=== PATIENT | female | born 1975 | race Caucasian/White ===

== ENCOUNTER 2021-01-06 13:35 | Emergency (ER) | payer OTHER ==
[~2021-01-06] VITALS: Ht 160 cm; Wt 82.5 kg
[~2021-01-06 13:35] MED LIST: AC500T; AZTH250C PO; Clindamycin; HYDR1TAB PO; IBP600T1 PO; IBUP-15 PO; MUCOUS RELIEF; OXYC-12 PO; OXYC1TAB87 PO; PREN1TAB39
[2021-01-06 13:49] VITALS: BP 125/85
[2021-01-06] MEDS ORDERED: TETANUS,DIPTH,PERTUSS P/F (BOOSTRIX) 0.5 ML VIAL IM ONE (14:00)
[2021-01-06] MEDS ORDERED: CEPHALEXIN 250 MG (KEFLEX) CAP PO SCH (14:00)
--- NOTE | 2021-01-06 14:01 | ED Upper Extremity ---
General Chief Complaint: Laceration Stated Complaint: L ARM ELBOW LAC Source: patient Exam Limitations: no limitations (DOROTHEA MORALES APRN) History of Present Illness Date Seen by Provider: Jan 06, 2021 Time Seen by Provider: 13:55 Initial Comments To ER with a right elbow laceration. 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 Onset: just prior to arrival Severity: moderate Pain/Injury Location: right elbow Method of Injury: unknown Modifying Factors: Worse With Movement (DOROTHEA MORALES APRN) Allergies and Home Medications Allergies Coded Allergies: Penicillins (Verified Allergy, Mild, 12/30/08) Home Medications Cephalexin 500 Mg Tablet, 500 MG PO TID Prescribed by: DOROTHEA MORALES on 01/06/21 1414 Ibuprofen 600 Mg Tab, 600 MG PO Q6H, (Reported) Oxycodone HCl/Acetaminophen 1 Each Tablet, 1 EACH PO Q4H PRN for PAIN Prescribed by: RY MARTINEZ on 01/19/16 0818 Patient Home Medication List Home Medication List Reviewed: Yes (DOROTHEA MORALES APRN) Review of Systems Constitutional: see HPI EENTM: see HPI Respiratory: no symptoms reported Cardiovascular: no symptoms reported Genitourinary: no symptoms reported Musculoskeletal: no symptoms reported Skin: see HPI Psychiatric/Neurological: No Symptoms Reported (DOROTHEA MORALES APRN) Past Suchnpf-Uldtpj-Ivqtmg Hx Patient Social History Tobacco Use?: Yes Tobacco type used: Cigarettes Smoking Status: Current Everyday Smoker Use of E-Cig and/or Vaping dev: No Substance use?: No Alcohol Use?: No Pt feels they are or have been: No (DOROTHEA MORALES APRN) Past Medical History Section Reproductive Disorders: No (DOROTHEA MORALES APRN) Physical Exam Vital Signs Vital Signs - First Documented 01/06/21 13:49 Pulse 70 Resp 20 B/P (MAP) 125/85 (98) Pulse Ox 97 O2 Delivery Room Air (RY AGUILAR MD) Vital Signs Capillary Refill : (DOROTHEA MORALES APRN) Height, Weight, BMI Height: 5'2" Weight: 170lbs. oz. 77.664102sd; BMI Method:Stated General Appearance: WD/WN, no apparent distress Neck: non-tender, full range of motion Respiratory: no respiratory distress, no accessory muscle use Gastrointestinal: normal bowel sounds, non tender Shoulder: normal inspection, non-tender Elbow/Forearm: normal inspection, non-tender Wrist: Yes normal inspection, Yes non-tender Hand: normal inspection, non-tender (DOROTHEA MORALES APRN) Departure Communication (Admissions) Family Conversation 1400-this was anesthetized with 2 mL of 2% lidocaine with epinephrine. Irrigated thoroughly with chlorhexidine/saline and then loosely closed with 2 simple erupted sutures size 4-0 Prolene. There is a laceration/puncture to the radial side antecubital space right arm. There is some exposed subcutaneous tissue. No active bleeding. (DOROTHEA MORALES APRN) Impression Primary Impression: Arm laceration Disposition: 01 HOME, SELF-CARE Condition: Stable Departure-Patient Inst. Decision time for Depature: 13:58 (DOROTHEA MORALES APRN) Referrals: NO,LOCAL PHYSICIAN (PCP/Family) Primary Care Physician Patient Instructions: Laceration Repair With Stitches ED Add. Discharge Instructions: You can shower letting water run over this starting this evening but do not soak it in water such as a hot tub bathtub or swimming pool until the stitches have been removed. Take the antibiotics as directed. Return to ER to have the stitches removed in about 7 to 10 days. All discharge instructions reviewed with patient and/or family. Voiced understanding. Scripts Cephalexin (Cephalexin) 500 Mg Tablet 500 MG PO TID, #15 TAB Prov: DOROTHEA MORALES APRN 01/06/21 ATTENDING PHYSICIAN NOTE: I was physically present as attending physician in the emergency department during the care of this patient, but I was not directly involved in the decision making or delivery of care for this patient. (RY AGUILAR MD) DOROTHEA MORALES APRN Jan 06, 2021 14:00 RY AGUILAR MD Jan 08, 2021 20:07
[2021-01-06] MEDS ORDERED: CEPH500T PO (14:14)
== END 2021-01-06 14:29 | disposition home or self-care (01) ==
LOC: EDUNIT# 13:35 → ER 13:37
DX: S41.112A Laceration without foreign body of left upper arm, initial encounter (principal); S51.012A Laceration without foreign body of left elbow, initial encounter; F17.210 Nicotine dependence, cigarettes, uncomplicated; Z23 Encounter for immunization; W22.8XXA Striking against or struck by other objects, initial encounter
CPT/HCPCS: 12001; 90471; 90715

== ENCOUNTER 2021-01-13 08:08 | Emergency (ER) | payer OTHER ==
[~2021-01-13] VITALS: Ht 160 cm; Wt 72.0 kg
[~2021-01-13 08:08] MED LIST changes: +CEPH500T PO
== END 2021-01-13 08:23 | disposition home or self-care (01) ==
LOC: EDUNIT# 08:08 → ER 08:09
DX: Z48.02 Encounter for removal of sutures (principal)

== ENCOUNTER 2022-04-02 19:34 | Emergency (ER) | payer SELFPAY ==
[2022-04-02] MEDS ORDERED: RX-NAPROXEN (NAPROSYN) 250 MG TAB PPK#4 PO STA (19:58)
[2022-04-02] MEDS ORDERED: RX-CYCLOBENZAPRINE 10 MG (FLEXERIL) TAB PPK#3 PO STA (19:58)
[2022-04-02] MEDS ORDERED: CYCL10TA25 PO (20:01)
[2022-04-02] MEDS ORDERED: NAPR500T8 PO (20:01)
--- NOTE | 2022-04-02 20:01 | ED Neck-Back Pain/Injury ---
General Chief Complaint: Head/Cervical Problems Stated Complaint: NECK PAIN Nursing Triage Note: PT ARRIVAL TO ER VIA PRIVATE VEHICLE FROM HOME WITH COMPLAINT OF NECK PAIN SINCE THIS AM. PATIENT WOKE UP WITH NECK PAIN AND STATES THAT IT FELT IF SHE SLEPT ON IT WRONG. WORSENED THROUGHOUT DAY. DENIES RECENT TRAUMA. PATIENT RATES PAIN AT A 4/10. PAIN IS TO LEFT SIDE OF NECK. PATIENT DENIES TAKING ANYTHING FOR THE PAIN AT HOME. Source of Information: Patient History of Present Illness Date Seen by Provider: Apr 02, 2022 Time Seen by Provider: 19:50 Initial Comments PT ARRIVES VIA POV FROM HOME SHE STATES SHE SLEPT WRONG, AND WOKE UP WITH LEFT SIDED NECK PAIN THIS MORNING--POINTS TO LEFT TRAPEZIUS AREA SITE OF PAIN AND PT IS RUBBING THIS AREA PAIN IS WORSE WITH ANY MOVEMENT NO RADIATION OF PAIN NO PARESTHESIAS OR MOTOR DEFICITS. NO INJURY OR UNUSUAL ACTIVITY. NO FEVER OR RECENT ILLNESS NO HEADACHE NO DIZZINESS NO HISTORY OF SIMILAR PT HAS NOT TAKEN ANYTHING FOR PAIN DENIES ANY MEDICAL PROBLEMS OF ANY KIND, AND DOES NOT TAKE ANY MEDICATIONS LMP--3-4 MONTHS AGO. NO CONTROL. PT STATES SHE HAS NOT HAD INTERCOURSE AT ANY TIME SINCE HER LAST PERIOD AND THERE IS NO POSSIBILITY OF . Other Comments PCP: [facility] Allergies and Home Medications Allergies Coded Allergies: Penicillins (Verified Allergy, Mild, 12/30/08) Patient Home Medication List Home Medication List Reviewed: Yes Cephalexin (Cephalexin) 500 Mg Tablet, 500 MG PO TID Prescribed by: DOROTHEA MORALES on 01/06/21 1414 Cyclobenzaprine HCl (Cyclobenzaprine HCl) 10 Mg Tablet, 10 MG PO Q8H PRN for SPASMS Prescribed by: CARLINE MULLER on 04/02/222000 Ibuprofen (Motrin) 600 Mg Tab, 600 MG PO Q6H, (Reported) Entered as Reported by: CARMENCITA BAKER on 03/28/12 1613 Naproxen (Naproxen) 500 Mg Tablet.dr, 500 MG PO BID Prescribed by: CARLINE MULLER on 04/02/222000 Oxycodone HCl/Acetaminophen (Percocet 5-325 mg Tablet) 1 Each Tablet, 1 EACH PO Q4H PRN for PAIN Prescribed by: RY MARTINEZ on 01/19/16 0818 Review of Systems Constitutional: no symptoms reported EENTM: no symptoms reported Respiratory: no symptoms reported Cardiovascular: no symptoms reported Gastrointestinal: no symptoms reported Genitourinary: no symptoms reported Control/STD Prophylaxis: None Skin: no symptoms reported Psychiatric/Neurological: No Symptoms Reported Past Atelgmp-Lbwwhj-Gvnyta Hx Patient Social History Tobacco Use?: Yes Tobacco type used: Cigarettes Smoking Status: Current Everyday Smoker Use of E-Cig and/or Vaping dev: No Substance use?: No Alcohol Use?: No Pt feels they are or have been: No Immunizations Up To Date Influenza Vaccine Up-to-Date: No; Not Current Past Medical History Surgeries: Yes Section Respiratory: No Cardiac: No Neurological: No : No Reproductive Disorders: No Genitourinary: No Gastrointestinal: No Musculoskeletal: No Endocrine: No HEENT: No Cancer: No Psychosocial: No Integumentary: No Blood Disorders: No Physical Exam Vital Signs Vital Signs - First Documented 04/02/22 19:39 Temp 36.5 Pulse 85 Resp 18 B/P (MAP) 131/88 (102) Pulse Ox 97 O2 Delivery Room Air Capillary Refill : Less Than 3 Seconds Height, Weight, BMI Height: 5'2" Weight: 170lbs. oz. 77.989955mr; 32.00 BMI Method:Estimated General Appearance: No Apparent Distress, WD/WN, Other (RUBBING LEFT TRAPEZIUS MUSCLE; REEKS OF CIGARETTES) HEENT: PERRL/EOMI, TMs Normal, Normal ENT Inspection, Pharynx Normal, Moist Mucous Membranes Neck: Full Range of Motion, Supple, Tender Lateral (TENDERNESS DIRECTLY OVER LEFT TRAPEZIUS MUSCLE. PALPATION REPRODUCES PAIN ), Other (NO VERTEBRAL OR BONY TENDERNESS) Cardiovascular: Regular Rate, Rhythm, No Edema, No JVD, No Murmur, Normal Peripheral Pulses Respiratory: Chest Non Tender, Normal Breath Sounds, No Accessory Muscle Use, No Respiratory Distress Gastrointestinal: Non Tender, Soft Back: No CVA Tenderness, No Vertebral Tenderness Extremity: Normal Capillary Refill, Normal Inspection, Normal Range of Motion, Non Tender, No Calf Tenderness, No Pedal Edema Neurologic/Psychiatric: Alert, Oriented x3, No Motor/Sensory Deficits, Normal Mood/Affect, prover II-XII Norm as Tested Skin: Normal Color, Warm/Dry; No Rash Progress/Results/Core Measures Results/Orders My Orders Orders - CARLINE MULLER DO Rx-Cyclobenzaprine Tablet (Rx-Flexeril T (04/02/22 19:58) Rx-Naproxen (Rx-Naprosyn) (04/02/22 19:58) Vital Signs/I&O 04/02/22 04/02/22 19:39 20:08 Temp 36.5 36.5 Pulse 85 85 Resp 18 18 B/P (MAP) 131/88 (102) 131/88 Pulse Ox 97 97 O2 Delivery Room Air Room Air Blood Pressure Mean: 102 Progress Progress Note : Progress Note OFFERED SHOTS FOR PAIN AND MUSCLE RELAXANT AND PT DECLINES ANTICIPATED COURSE, SYMPTOMATIC TREATMENT, NEED FOR FOLLOW UP AND RETURN PRECAUTIONS DISCUSSED WITH PT Departure Impression Primary Impression: Strain of left trapezius muscle Disposition: HOME, SELF-CARE Condition: Stable Departure-Patient Inst. Decision time for Depature: 19:59 Referrals: [facility] Patient Instructions: Muscle Strain (DC), Using Heat for Pain Add. Discharge Instructions: MOIST HEAT TO AREA AT 20 MINUTE INTERVALS FOLLOW UP WITH [facility] IN 3-4 DAYS IF NO BETTER All discharge instructions reviewed with patient and/or family. Voiced understanding. Scripts Naproxen (Naproxen) 500 Mg Tablet. 500 MG PO BID, #20 TAB Prov: CARLINE MULLER DO 04/02/22 Cyclobenzaprine HCl (Cyclobenzaprine HCl) 10 Mg Tablet 10 MG PO Q8H PRN for SPASMS, #15 TAB 0 Refills Prov: CARLINE MULLER DO 04/02/22 CARLINE MULLER DO Apr 02, 2022 20:01
[2022-04-02 20:08] VITALS: BP 131/88
== END 2022-04-02 20:08 | disposition home or self-care (01) ==
LOC: EDUNIT# 19:34 → ER 19:35
DX: S46.912A Strain of unspecified muscle, fascia and tendon at shoulder and upper arm level, left arm, initial encounter (principal); F17.210 Nicotine dependence, cigarettes, uncomplicated; Z28.310 Unvaccinated for COVID-19; X50.1XXA Overexertion from prolonged static or awkward postures, initial encounter
CPT/HCPCS: 99283